=== PATIENT | male | born 1935 | race Caucasian/White ===

== ENCOUNTER 2019-03-15 15:10 | Inpatient (IN) | payer SELFPAY ==
[~2019-03-15] VITALS: Ht 152.4 cm; Wt 58.1 kg
[2019-03-15 16:27] LABS: CHLORIDE 98 mEq/L (98-107)
[2019-03-15 16:29] LABS: HEMATOCRIT. 38.8 % (42.0-52.0); HEMOGLOBIN. 12.6 g/dL (14.0-18.0); MEAN CORPUSCULAR HEMOGLOBIN 26.7 pg (28.0-32.0); MEAN PLATELET VOLUME 6.3 fl (7.4-10.4); PLATELET 306 x1000/uL (130-400); RED BLOOD CELL COUNT 4.72 mill/uL (4.7-6.1); RED CELL DISTRIBUTION WIDTH 16.2 % (11.6-14.6)
[2019-03-15 16:32] LABS: D-DIMER 0.71 mg/L FEU (<0.50); ETHANOL BLOOD < 10 mg/dL; PARTIAL THROMBOPLASTIN TIME 24.2 sec (23.4-31.0)
[2019-03-15 16:58] LABS: PLATELET ESTIMATE NORMAL
[2019-03-15 17:32] LABS: CLARITY URINE TURBID (CLEAR); COLOR URINE YELLOW (YELLOW); KETONES URINE NEGATIVE (NEGATIVE); LEUKOCYTE ESTERASE URINE NEGATIVE (NEGATIVE); NITRITE URINE NEGATIVE (NEGATIVE); OCCULT BLOOD URINE NEGATIVE (NEGATIVE); PROTEIN URINE TRACE (NEGATIVE); SPECIFIC GRAVITY URINE 1.011 (1.005-1.030)
[2019-03-15 17:43] LABS: *AMPHETAMINES SCREEN URINE NEGATIVE (NEGATIVE); *BARBITURATES SCREEN URINE NEGATIVE (NEGATIVE); *BENZODIAZEPINES SCREEN URINE NEGATIVE (NEGATIVE); *COCAINE SCREEN URINE NEGATIVE (NEGATIVE); METHADONE URINE SCREEN NEGATIVE (NEGATIVE); OPIATES URINE SCREEN NEGATIVE (NEGATIVE)
[2019-03-15 17:44] LABS: CANNABINOID URINE SCREEN NEGATIVE (NEGATIVE); PHENCYCLIDINE URINE SCREEN NEGATIVE (NEGATIVE)
[2019-03-15] MEDS ORDERED: SODIUM CHLORIDE 0.9% 1000ML BAG (SEPSIS BOLUS) IV ONE (17:45)
[2019-03-15] MEDS ORDERED: CEFTRIAXONE 1,000 MG in DEXTROSE 5% WATER 50 ML IV SCH (17:45)
[2019-03-15] MEDS ORDERED: GUAIFENESIN 200MG/10ML SUGAR FREE UDC PO PRN (19:00)
[2019-03-15] MEDS ORDERED: MAGNESIUM/ALUMINUM HYDROXIDE/SIMETHICONE 30ML UDC PO PRN (19:00)
[2019-03-15] MEDS ORDERED: CLONIDINE 0.1MG TABLET PO PRN (19:00)
[2019-03-15] MEDS ORDERED: ACETAMINOPHEN 325MG TABLET PO PRN (19:00)
[2019-03-15] MEDS ORDERED: ONDANSETRON HCL 4MG/2ML INJ IV PRN (19:00)
[2019-03-15] MEDS ORDERED: DOCUSATE SODIUM 100MG CAPSULE PO PRN (19:00)
[2019-03-15] MEDS ORDERED: NA PHOS,M-B/NA PHOS,DI-BA ENEMA 118ML PR PRN (19:00)
[2019-03-15] MEDS ORDERED: HYDROCODONE/ACETAMINOPHEN 5/325MG TABLET PO PRN (19:00)
[2019-03-15 20:00] VITALS: BP 121/75
[2019-03-15] MEDS ORDERED: ENOXAPARIN 40MG/0.4ML SYR SUBCUT SCH (21:00)
[2019-03-15 21:20] VITALS: BP_SYST 111; BP_SYST 121; BP_SYST 125; BP_DIAS 68; BP_DIAS 75; BP_DIAS 80
[2019-03-15] MEDS ORDERED: ACET250T3 MT (21:27)
[2019-03-15] MEDS ORDERED: RISP1TAB26 PO (21:27)
[2019-03-15] MEDS ORDERED: MEMA10TA19 MT (21:27)
[2019-03-15] MEDS: SODIUM CHLORIDE 0.9% 1,000 ML IV SCH (23:11)
[2019-03-16] VITALS: BP 121/74
[2019-03-16 04:00] VITALS: BP 158/74
[2019-03-16 08:37] VITALS: BP 110/63
[2019-03-16] MEDS ORDERED: ASPIRIN 81MG EC TABLET PO SCH (09:00)
[2019-03-16] MEDS: SODIUM CHLORIDE 0.9% 1,000 ML IV SCH (10:03)
[2019-03-16 11:43] LABS: CHLORIDE 104 mEq/L (98-107)
[2019-03-16 11:47] LABS: BASOPHILS % 0.4 % (0.0-2.0); EOSINOPHILS % 0.3 % (0.0-5.0); HEMATOCRIT. 37.7 % (42.0-52.0); HEMOGLOBIN. 12.4 g/dL (14.0-18.0); LYMPHOCYTES % 19.8 % (20.0-50.0); MEAN CORPUSCULAR HEMOGLOBIN 26.9 pg (28.0-32.0); MEAN CORPUSCULAR VOLUME 81.8 fL (80.0-94.0); MEAN PLATELET VOLUME 6.4 fl (7.4-10.4); MONOCYTES % 9.9 % (2.0-8.0); NEUTROPHILS % 69.6 % (40.0-76.0); PLATELET 334 x1000/uL (130-400); RED BLOOD CELL COUNT 4.61 mill/uL (4.7-6.1); RED CELL DISTRIBUTION WIDTH 16.4 % (11.6-14.6)
[2019-03-16 11:52] LABS: LDL CHOLESTEROL 98 mg/dL (5-100)
[2019-03-16 11:53] LABS: HDL CHOLESTEROL 50 mg/dL (40-59); T4 FREE 0.74 ng/dL (0.76-1.46)
[2019-03-16 11:58] VITALS: BP 112/71
[2019-03-16] MEDS ORDERED: PNEUMOCOCCAL 23-VAL P-SAC VAC 0.5 ML IM ONE (12:00)
[2019-03-16 14:37] VITALS: BP 112/71
== END 2019-03-16 16:18 | disposition home or self-care (01) | DRG 720 ==
LOC: ER 15:10 → 6WST 17:35 → EDBEDREQ 17:45 → SUPCPDRO 18:59 → ENRESERV 19:02
PROVIDERS: ADMIT Hospitalist; ATTEND Hospitalist
DX: A41.9 Sepsis, unspecified organism (principal); E11.9 Type 2 diabetes mellitus without complications; J98.11 Atelectasis; Z79.84 Long term (current) use of oral hypoglycemic drugs
CPT/HCPCS: 36415; 71045; 80061; 80305; 80320; 81003; 83605; 83880; 84439; 84443; 84484; 85379; 93005; 93306; 93970; 96365; 99291; J0696; J1650; J7060; G0480